=== PATIENT | female | born 1990 | race Caucasian/White ===

== ENCOUNTER 2020-07-17 17:43 | Emergency (ER) | payer MEDICAID ==
[2020-07-17 17:51] VITALS: BP 160/78
--- NOTE | 2020-07-17 18:04 | ED Physician Documentation ---
History of Present Illness - Stated complaint Stated Complaint: SOA - Additonal information Additional information: 30-year-old female presents to the emergency department for evaluation of shortness of breath. She reports a longstanding history of asthma but has been out of her maintenance medication Advair for nearly 2 months since she moved from [place] to [facility]. She was able to have her former provider refill ProAir about 2 weeks ago but she has used it on average of 6-8 times a day and the inhaler is now out. She has a dry cough, no fevers. Denies any new sick contacts, loss of taste or smell. She has scheduled to establish with a primary care provider but that appointment is not until late August. no tobacco use for 5 years. She denies any history of blood clots or cancer. No recent immobilization or unilateral leg swelling. No hemoptysis. She is not on any oral contraceptives. She denies the possibility of as she has a history of a hysterectomy. PD PAST MEDICAL HISTORY - Present Medications Home Medications: Ambulatory Orders Medication Instructions Recorded Confirmed Albuterol 2.5 mg INH Q4H PRN #30 neb 07/17/20 Albuterol Sulfate [Proair Hfa 1 - 2 puffs INH Q4H PRN 07/17/20 07/17/20 Inhaler] Albuterol Sulfate [Proair Hfa 8.5 gm IH TID PRN #1 hfa.aer.ad 07/17/20 Inhaler] Fluticasone/Salmeterol [Advair 1 each IH BID 07/17/20 07/17/20 250-50 Diskus] Fluticasone/Salmeterol [Advair 1 each IH DAILY #1 blst.w.dev 07/17/20 250-50 Diskus] Ipratropium/Albuterol [Duoneb] 3 ml INH Q6H PRN 07/17/20 07/17/20 Nebulizer and Compressor [[place] 1 each MC TID PRN #1 each 07/17/20 Choice Nebulizer] predniSONE [Prednisone] 40 mg PO DAILY #10 tablet 07/17/20 - Allergies Allergies/Adverse Reactions: Allergies Allergy/AdvReac Type Severity Reaction Status Date / Time No Known Drug Allergies Allergy Verified 07/17/20 17:45 PD ED PE EXPANDED - General General: Alert, No acute distress - Neck Neck: Supple w/out meningeal sx. No: Adenopathy - Cardiac Cardiac: Regular Rate, Regular Rhythm, Radial strong equal, Pedal strong equal, Cap refill < 2 sec - Respiratory Respiratory: Clear to ausultation tod, Wheezing, Other (tachypneic; Faint globally scattered wheezes) - Abdomen Abdomen: Normal Bowel sounds. No: Tender to palpation - Extremities Extremities: Normal. No: Pedal edema bilateral - Neuro Neuro: Alert and Oriented X 3, CNII-XII intact, Normal speech - GCS Eye Opening: Spontaneous Motor: Obeys Commands Verbal: Oriented Total: 15 Results - Vitals Vitals: Vital Signs - 24 hr 07/17/20 07/17/20 17:45 18:11 Temperature 36.5 C Heart Rate 79 76 Respiratory 24 16 Rate Blood Pressure 160/78 H O2 Saturation 100 Oxygen O2 Source Room air - Rads (name of study) CXR Radiology: Final report received (No acute cardiopulmonary process) PD MEDICAL DECISION MAKING - ED course Complexity details: reviewed results, re-evaluated patient, considered differential, d/w patient ED course: 30-year-old female presents to the emergency department with 2 weeks of shortness of air. She has a preceding history of known asthma and she has been out of her inhaler for nearly 2 months. On initial presentation she is mildly tachypneic and has very faint global wheezes. She is not hypoxic. Chest x-ray unremarkable for age. no findings to suggest pneumonia. Doubt PE, Pt is PERC negative - Pt was given 60 mg prednisone in the ED and received a duoneb while here. Shortly after receiving the DuoNeb patient felt that her shortness of breath had improved. She feels ready for discharge. She will be given a prescription to resume her Advair as well as a 5-day course of prednisone. I have also prescribed a nebulizer as well as albuterol solution for the nebulizer. She does have a PCP appointment that is scheduled for late August. We discussed emergent return precautions which include any fevers, if she develops a productive cough or has worsening shortness of air despite this treatment. Departure - Departure Disposition: 01 Home, Self Care Clinical Impression: Asthma exacerbation Qualifiers: Asthma severity: moderate Asthma persistence: unspecified Qualified Code(s): J45.901 - Unspecified asthma with (acute) exacerbation Condition: Stable Record reviewed to determine appropriate education?: Yes Prescriptions: Fluticasone/Salmeterol [Advair 250-50 Diskus] 1 each IH DAILY #1 blst.w.dev Albuterol 2.5 mg INH Q4H PRN #30 neb PRN Reason: Wheezing Nebulizer and Compressor [[place] Choice Nebulizer] 1 each MC TID PRN #1 each PRN Reason: Shortness Of Air/Wheezing predniSONE [Prednisone] 40 mg PO DAILY #10 tablet Albuterol Sulfate [Proair Hfa Inhaler] 8.5 gm IH TID PRN #1 hfa.aer.ad PRN Reason: short of air Comments: I think that you were having an exacerbation of your asthma as you have been out of your maintenance medications for quite some time. I have refilled your albuterol as well as your Advair. You should have enough refills to get you through to your primary care appointment. I have also written a prescription for a nebulizer and albuterol to be used 2-3 times a day as needed at home. If at any point you feel that your shortness of breath is worsening, you develop fevers or have a productive cough and please return immediately to the ER.
[2020-07-17] MEDS ORDERED: IPRATROPIUM/ALBUTEROL 3 ML NEB INH PRN (18:05)
[2020-07-17] MEDS ORDERED: predniSONE 20 MG TABLET PO STA (18:05)
--- NOTE | 2020-07-17 18:42 | XRAY Report ---
PROCEDURE: Chest 1 View X-Ray INDICATIONS: short of air TECHNIQUE: One view of the chest was acquired. COMPARISON: None. FINDINGS: Surgical changes and devices: None. Lungs and pleura: No pleural effusions or pneumothorax. Mildly increased bronchovascular markings in bilateral hilar region are seen with mild bronchial wall thickening. No focal infiltrate. Mediastinum: Mediastinal contours appear normal. Heart size is normal. Bones and chest wall: No suspicious bony lesions. Overlying soft tissues appear unremarkable. IMPRESSION: Finding is suggestive of mild reactive airway disease such as bronchitis or asthma. No focal infiltra te. No pleural effusion or pneumothorax. Reviewed by: Aguilar Funez MD on 07/17/2020 5:41 PM BOO Approved by: Aguilar Funez MD on 07/17/2020 5:41 PM AKDT Station ID: [id number]
== END 2020-07-17 18:56 | disposition home or self-care (01) ==
LOC: ED 17:43
DX: J45.901 Unspecified asthma with (acute) exacerbation (principal); Z76.0 Encounter for issue of repeat prescription
CPT/HCPCS: 71045; 94640; 99281; 99283; J7512

== ENCOUNTER 2021-01-01 08:17 | Outpatient (CLI) | payer MEDICAID ==
--- NOTE | 2021-01-02 09:55 | Mammography Report ---
BILATERAL DIGITAL DIAGNOSTIC MAMMOGRAM 3D/2D: 01/01/2021 CLINICAL: Palpable right breast lump. Baseline exam. No prior exams were available for comparison. The tissue of both breasts is heterogeneously dense. T his may lower the sensitivity of mammography. No significant masses, calcifications, or other findings are seen in either breast. IMPRESSION: INCOMPLETE: NEEDS ADDITIONAL IMAGING EVALUATION There is no abnormality seen in the right breast to correspond with the palpable abnormality in the u pper inner quadrant, however, ultrasound is recommended. Ultrasound will be performed immediately following the current exam. This exam was interpreted at Station ID: [id number]. NOTE: For mammograms, a report in lay terms will be sent to the patient. Approximately 15% of breast malignancies will not be visualized mammographically. In the management of a palpable breast mass, a negative mammogram must not discourage biopsy of a clinically suspicious lesion. Electronically Signed By: Carmelo Wilson M.D. ddp/:01/01/2021 08:57:58 ACR BI-RADS Category 0: Incomplete 3340F PARENCHYMAL PATTERN: (D) - The breast(s) demonstrate(s) heterogeneously dense fibroglandular lester hope. BI-RADS CATEGORY: (0) - 0 Ultrasound [id number] Immediate follow-up LATERALITY: (B)
--- NOTE | 2021-01-02 09:55 | Ultrasound Report ---
LIMITED ULTRASOUND OF RIGHT BREAST: 01/01/2021 CLINICAL: Palpable, intermittent right breast lump by patient. Comparison is made to exam dated: 01/01/2021 mammogram - [facility]. Real-time ultrasound of the right breast 1 o'clock region was performed on the area of interest. No discrete cystic or solid mass lesion identified in the area of palpable abnormality. IMPRESSION: NEGATIVE There is no sonographic evidence of malignancy. There is no abnormality seen in the right breast to correspond with the palpable abnormality at 1 o'c lock, however, clinical followup is recommended. Screening mammography recommended at age 40. This exam was interpreted at Station ID: [id number]. Electronically Signed By: Carmelo Wilson M.D. ddp/:01/01/2021 09:16:22 Ultrasound BI-RADS: 1 Negative BI-RADS CATEGORY: (1) - 1 Unspecified - other recall n/a LATERALITY: (B)
== END 2021-01-01 08:18 | disposition home or self-care (01) ==
LOC: DI 08:17
PROVIDERS: ATTEND Nurse Practitioner Family
DX: N63.12 Unspecified lump in the right breast, upper inner quadrant (principal); R63.5 Abnormal weight gain; J45.909 Unspecified asthma, uncomplicated; Z79.899 Other long term (current) drug therapy
CPT/HCPCS: 36415; 80048; 84443

== ENCOUNTER 2021-01-01 09:23 | Outpatient (CLI) | payer MEDICAID ==
[2021-01-01 10:10] LABS: CREATININE 0.6 mg/dL (0.4-1.0)
[2021-01-01 10:20] LABS: THYROID STIMULATING HORMONE 2.18 uIU/mL (0.34-5.60)
== END 2021-01-01 09:24 | disposition home or self-care (01) ==
LOC: LAB 09:23
PROVIDERS: ATTEND Physician Assistant
DX: R63.5 Abnormal weight gain (principal); J45.909 Unspecified asthma, uncomplicated; Z79.899 Other long term (current) drug therapy
CPT/HCPCS: 36415; 80048; 84443

== ENCOUNTER 2021-03-19 12:00 | Outpatient (CLI) | payer MEDICAID ==
[2021-03-19 17:51] LABS: BASOPHILS # (AUTO) 0.1 10^3/uL (0.0-0.1); BASOPHILS % (AUTO) 0.7 %; EOSINOPHILS # (AUTO) 0.3 10^3/uL (0.0-0.7); EOSINOPHILS % (AUTO) 3.8 %; HCT - HEMATOCRIT 42.7 % (37.0-47.0); HGB - HEMOGLOBIN 14.3 g/dL (12.0-16.0); LYMPHOCYTES # (AUTO) 1.9 10^3/uL (1.5-3.5); MEAN CORPUSCULAR HEMOGLOBIN 29.4 pg (27.0-31.0); MEAN CORPUSCULAR HGB CONC 33.5 g/dL (32.0-36.0); MEAN CORPUSCULAR VOLUME 87.9 fL (81.0-99.0); MEAN PLATELET VOLUME 12.1 fL (7.9-10.8); MONOCYTES # (AUTO) 0.6 10^3/uL (0.0-1.0); MONOCYTES % (AUTO) 7.4 %; NEUTROPHILS # (AUTO) 5.6 10^3/uL (1.5-6.6); PLT - PLATELET COUNT 241 10^3/uL (130-450); RED BLOOD COUNT 4.86 10^6/uL (4.20-5.40); RED CELL DISTRIBUTION WIDTH 11.9 % (12.0-15.0); WHITE BLOOD COUNT 8.5 x10^3/uL (4.8-10.8)
[2021-03-21 15:26] LABS: ANA SCREEN NEGATIVE (NEGATIVE)
[2021-03-22 18:26] LABS: 18 KD (IGG) BAND NON-REACTIVE; 23 KD (IGG) BAND NON-REACTIVE; 23 KD (IGM) BLOT NON-REACTIVE; 28 KD (IGG) BAND NON-REACTIVE; 30 KD (IGG) BAND NON-REACTIVE; 39 KD (IGG) BAND REACTIVE; 39 KD (IGM) BLOT NON-REACTIVE; 41 KD (IGG) BAND NON-REACTIVE; 41 KD (IGM) BLOT NON-REACTIVE; 45 KD (IGG) BAND NON-REACTIVE; 58 KD (IGG) BAND NON-REACTIVE; 66 KD (IGG) BAND NON-REACTIVE; 93 KD (IGG) BAND NON-REACTIVE
== END 2021-03-19 12:01 | disposition home or self-care (01) ==
LOC: LAB.N 12:00
PROVIDERS: ATTEND Physician Assistant
DX: G62.9 Polyneuropathy, unspecified (principal); R53.83 Other fatigue; H53.9 Unspecified visual disturbance; Z82.0 Family history of epilepsy and other diseases of the nervous system
CPT/HCPCS: 36415; 82607; 85025; 85651; 86038; 86592; 86617

== ENCOUNTER 2021-07-31 10:41 | Emergency (ER) | payer MEDICAID ==
[2021-07-31 11:13] LABS: BILIRUBIN,URINE NEGATIVE (NEGATIVE); GLUCOSE, URINE (UA) NEGATIVE (NEGATIVE); KETONES,URINE (UA) NEGATIVE (NEGATIVE); LEUKOCYTE ESTERASE, URINE NEGATIVE (NEGATIVE); NITRITE,URINE NEGATIVE (NEGATIVE); OCCULT BLOOD,URINE NEGATIVE (NEGATIVE); PH,URINE 6.5 PH (5.0-7.5); PROTEIN,URINE NEGATIVE (NEGATIVE); UROBILINOGEN,URINE 0.2 (NORMAL) E.U./dL (NORMAL)
[2021-07-31 11:15] LABS: CLARITY,URINE CLEAR (CLEAR)
[2021-07-31 11:20] LABS: BASOPHILS # (AUTO) 0.1 10^3/uL (0.0-0.1); BASOPHILS % (AUTO) 1.5 %; EOSINOPHILS # (AUTO) 0.2 10^3/uL (0.0-0.7); EOSINOPHILS % (AUTO) 2.7 %; HCT - HEMATOCRIT 41.6 % (37.0-47.0); LYMPHOCYTES # (AUTO) 2.1 10^3/uL (1.5-3.5); LYMPHOCYTES % (AUTO) 35.8 %; MEAN CORPUSCULAR HEMOGLOBIN 28.9 pg (27.0-31.0); MEAN CORPUSCULAR HGB CONC 33.7 g/dL (32.0-36.0); MEAN CORPUSCULAR VOLUME 85.8 fL (81.0-99.0); MONOCYTES # (AUTO) 0.5 10^3/uL (0.0-1.0); NEUTROPHILS # (AUTO) 3.1 10^3/uL (1.5-6.6); NEUTROPHILS % (AUTO) 51.8 %; PLT - PLATELET COUNT 243 10^3/uL (130-450); RED BLOOD COUNT 4.85 10^6/uL (4.20-5.40); WHITE BLOOD COUNT 5.9 x10^3/uL (4.8-10.8)
[2021-07-31 11:43] LABS: ALBUMIN 4.1 g/dL (3.2-5.5); ALBUMIN/GLOBULIN RATIO 1.3 (1.0-2.2); BILIRUBIN,TOTAL 0.9 mg/dL (0.2-1.0); CREATININE 0.6 mg/dL (0.4-1.0); TOTAL PROTEIN 7.3 g/dL (6.7-8.2)
[2021-07-31] MEDS ORDERED: KETOROLAC 30 MG/ML VIAL IVP STA (13:55)
--- NOTE | 2021-07-31 14:02 | ED Physician Documentation ---
History of Present Illness - Stated complaint Stated Complaint: LOW BACK PX - Chief complaint Chief Complaint: Abd Pain - History obtained from History obtained from: Patient - History of Present Illness Timing: How many days ago (2) Pain level max: 7 Pain level now: 4 - Additonal information Additional information: 31-year-old female presents to the emergency department stating that she has pain to the right flank. Started 2 days ago. She states it is worse with movement and better with rest. She states that she has had some difficulty urinating as well. Started herself on Augmentin 4 days ago for possible UTI. She states that she has had UTIs and kidney infections in the past. No fevers. No chills. No vomiting. No diarrhea. No constipation. Review of Systems Ten Systems: 10 systems reviewed and negative Constitutional: denies: Fever, Chills GI: denies: Vomiting, Diarrhea : denies: Now EGA Musculoskeletal: denies: Neck pain, Back pain PD PAST MEDICAL HISTORY - Past Medical History Past Medical History: Yes Cardiovascular: None Respiratory: Asthma Neuro: None Endocrine/Autoimmune: None GI: None WAREDRESSER: None : Chronic bladder infection HEENT: None Psych: None Musculoskeletal: None Derm: None - Past Surgical History Past Surgical History: Yes General: Appendectomy /WAREDRESSER: Hysterectomy HEENT: Tonsil/Adenoidectomy, Other - Present Medications Home Medications: Ambulatory Orders Medication Instructions Recorded Confirmed Albuterol Sulfate [Proair Hfa 1 - 2 puffs INH Q4H PRN 07/17/20 07/17/20 Inhaler] Budesonide/Formoterol Fumarate 0 puffs 07/31/21 [Symbicort 80-4.5 Mcg Inhaler] Ondansetron Odt [Zofran] 4 mg TL Q6H PRN #10 tablet 07/31/21 Oxycodone HCl/Acetaminophen 1 - 2 each PO Q6H PRN #14 tablet 07/31/21 [Percocet 5-325 mg Tablet] - Allergies Allergies/Adverse Reactions: Allergies Allergy/AdvReac Type Severity Reaction Status Date / Time No Known Drug Allergies Allergy Verified 07/31/21 10:52 - Social History Does the pt smoke?: No Smoking Status: Never smoker Does the pt drink ETOH?: No Does the pt have substance abuse?: Yes Substance Use and Type: Marijuana - Immunizations Immunizations are current?: Yes PD ED PE NORMAL - Vitals Vital signs reviewed: Yes - General General: Alert and oriented X 3, No acute distress - HEENT HEENT: Moist mucous membranes - Neck Neck: Supple, no meningeal sign - Cardiac Cardiac: RRR - Respiratory Respiratory: No respiratory distress, Clear bilaterally - Abdomen Abdomen: Soft, Non distended, Other (Mild diffuse tenderness to palpation along lower abdomen.) - Back Back: No CVA TTP, No spinal TTP - Derm Derm: Warm and dry, No rash - Extremities Extremities: No edema - Neuro Neuro: Alert and oriented X 3 - Psych Psych: Normal mood, Normal affect Results - Vitals Vitals: Vital Signs - 24 hr 07/31/21 07/31/21 07/31/21 10:47 12:57 13:59 Temperature 36.8 C 36.7 C 36.9 C Heart Rate 121 H 62 60 Respiratory 18 18 18 Rate Blood Pressure 151/89 H 132/85 H 141/71 H O2 Saturation 100 100 100 07/31/21 17:11 Temperature 36.7 C Heart Rate 71 Respiratory 16 Rate Blood Pressure 125/70 O2 Saturation 100 Oxygen O2 Source Room air - Labs Labs: Laboratory Tests 07/31/21 07/31/21 07/31/21 11:00 11:15 11:15 WBC 5.9 RBC 4.85 Hgb 14.0 Hct 41.6 MCV 85.8 MCH 28.9 MCHC 33.7 RDW 12.0 Plt Count 243 MPV 11.0 H Neut # (Auto) 3.1 Lymph # (Auto) 2.1 [place] # (Auto) 0.5 Eos # (Auto) 0.2 Baso # (Auto) 0.1 Absolute Nucleated RBC 0.00 Nucleated RBC % 0.0 Sodium 137 Potassium 4.0 Chloride 106 Carbon Dioxide 23 Anion Gap 8.0 BUN 12 Creatinine 0.6 Estimated GFR (MDRD) 115 Glucose 98 Calcium 9.0 Total Bilirubin 0.9 AST 34 ALT 46 Alkaline Phosphatase 60 Total Protein 7.3 Albumin 4.1 Globulin 3.2 Albumin/Globulin Ratio 1.3 Lipase 27 Urine Color YELLOW Urine Clarity CLEAR Urine pH 6.5 Ur Specific [place] 1.015 Urine Protein NEGATIVE Urine Glucose (UA) NEGATIVE Urine Ketones NEGATIVE Urine Occult Blood NEGATIVE Urine Nitrite NEGATIVE Urine Bilirubin NEGATIVE Urine Urobilinogen 0.2 (NORMAL) Ur Leukocyte Esterase NEGATIVE Ur Microscopic Review NOT INDICATED Urine Culture Comments NOT INDICATED - Rads (name of study) abd/pelvis ct Radiology: Final report received, EMP read contemporaneously, See rad report (1.Large amount of stool burden throughout the colon, which may reflect constipation. 2.Cystic appearing lesion in the right adnexa, likely reflecting an ovarian cyst. Consider pelvic ultrasound as clinically warranted.) pelvic US Radiology: Final report received, EMP read contemporaneously, See rad report (Negative for ovarian torsion. Likely bilateral hemorrhagic cysts. If clinically appropriate, please consider a short-term follow-up ultrasound in 6 weeks to ensure resolution/improvement. Status post hysterectomy.) PD MEDICAL DECISION MAKING - ED course Complexity details: reviewed results, re-evaluated patient, considered differential, d/w patient ED course: Pain well controlled in the emergency department. Appears to have bilateral hemorrhagic ovarian cysts on ultrasound. Likely causing her pain. We will place her on pain medication and have her follow-up with her doctor for further care. Return precautions given. Patient counseled regarding signs and symptoms for which I believe and urgent re-evaluation would be necessary. Patient with good understanding of and agreement to plan and is comfortable going home at this time This document was made in part using voice recognition software. While efforts are made to proofread this document, sound alike and grammatical errors may occur. I am prescribing a short course of short-acting opioid pain medication for this patient. I have reviewed the patients ENVIRONMENTAL HEALTH OFFICER and no concerning findings were noted. I have discussed that the opioids are for short term therapy only, and will not be refilled from the ED. Departure - Departure Disposition: 01 Home, Self Care Clinical Impression: Hemorrhagic ovarian cyst Condition: Good Instructions: ED Cyst Ovarian Follow-Up: Feliciano Zurita MD [Primary Care Provider] - Within 1 week Prescriptions: Oxycodone HCl/Acetaminophen [Percocet 5-325 mg Tablet] 1 - 2 each PO Q6H PRN #14 tablet PRN Reason: pain Ondansetron Odt [Zofran] 4 mg TL Q6H PRN #10 tablet PRN Reason: Nausea / Vomiting Comments: Prescriptions were sent to [facility] in [place]. Please follow-up with your doctor for further care. Return if you worsen. You should have a repeat ultrasound in 4 to 6 weeks to ensure resolution of the cysts. I am prescribing a short course of narcotic pain medication for you. These are potentially dangerous and addictive medications that should be used carefully. These medications may constipate you. Take an nxgr-eeb-oedvnxc stool softener (docusate) twice daily with plenty of water while taking these medications. If you go 24 hours without a bowel movement, take oxny-ftk-gwulybr miralax, per tn pool instructions. Do not drink or drive while taking these medications. If you received narcotic or sedating medications while in the emergency department, do not drive for 24 hours. Store this medication in a safe, secure place and out of reach of children. It is a violation of federal law to give or sell this medication to another person or to use in a manner other than prescribed. The ED will not refill narcotic prescriptions, including prescriptions lost or stolen. To dispose of unwanted medications: 1. [facility] at [address] in [place] has a medication drop box. They accept prescription medications (in pill form) Thursday through Thursday 9:00 a.m. to 5:00 p.m. 2. The [facility] accepts prescription medications (in pill form only) for disposal year round. Call for more information. 3. Contact the [facility] for the next [facility] sponsored prescription drug collection event. , [phone], or [phone]; Discharge Date/Time: 07/31/21 17:14
[2021-07-31] MEDS ORDERED: IOVERSOL 320 100 ML VIAL IVP ONE ×2 (14:09→21:49)
--- NOTE | 2021-07-31 14:43 | CT Report ---
PROCEDURE: Abdomen/Pelvis W INDICATIONS: RLQ/ R flank pain CONTRAST: IV CONTRAST: Optiray 320 ml: 100 PO CONTRAST: *NO PO CONTRAST TECHNIQUE: After the administration of intravenous contrast, 5 mm thick sections acquired from the diaphragms to the symphysis. 5 mm thick coronal and sagittal reformats were acquired. For radiation dose reducti on, the following was used: automated exposure control, adjustment of mA and/or kV according to megan ent size. COMPARISON: None. FINDINGS: Inferior chest: No focal consolidation, pleural effusion, or pneumothorax. No cardiomegaly or perica rdial effusion. Gallbladder: The gallbladder is distended with a smooth thin wall. Biliary tree: No intra-or extrahepatic biliary ductal dilatation. Liver: The liver demonstrates normal enhancement, size, and contour. Spleen: Normal enhancement, size and morphology is seen. Pancreas: No contour deforming mass or inflammatory change. Adrenals: Normal size without masses. Kidneys/ureters: Normal size and morphology. No solid masses or hydronephrosis. Vasculature: No evidence of aneurysm or other significant vascular pathology. Lymphatic system: No pathologic enlargement by size criteria. GI/mesentery: No evidence of intestinal obstruction. Large amount of stool burden throughout the colo n. The appendix is not clearly identified. Peritoneum/Retroperitoneum: No free intraperitoneal gas or large collection. Urinary bladder: Not well distended. Pelvic organs: 3.6 x 2.2 cm hypoattenuating lesion in the right adnexa. Bones/soft tissues: No significant abnormality. IMPRESSION: 1.Large amount of stool burden throughout the colon, which may reflect constipation. 2.Cystic appearing lesion in the right adnexa, likely reflecting an ovarian cyst. Consider pelvic ult rasound as clinically warranted. Reviewed by: Jorge Frankel MD on 07/31/2021 2:42 PM PDT Approved by: Jorge Frankel MD on 07/31/2021 2:42 PM PDT Station ID: [id number]
[2021-07-31 17:13] VITALS: BP 125/70
--- NOTE | 2021-07-31 17:13 | Ultrasound Report ---
PROCEDURE: Pelvic w/Transvag+Doppler Comp INDICATIONS: pelvic pain, R, h/o hysterectomy, R ovary cyst CT? TECHNIQUE: Real-time scanning was performed of the pelvic organs, with image documentation. Additional endovagi nal scanning was necessary due to incomplete visualization of the adnexal and endometrial structures by transabdominal scanning. COMPARISON: Correlation is made with prior abdomen pelvis CT, 07/31/2021. FINDINGS: No pathologic free abdominal or pelvic fluid. Uterus: Prior hysterectomy. Ovaries: The right ovary measures 4.8 x 2.6 x 3.8 cm, with a calculated volume of 25.2 cc. Likely he morrhagic cysts are seen involving the right ovary that measure up to 1.8 cm up to 1.4 cm, respective ly. The left ovary measures 3.9 x 1.6 x 2.8 cm, with a calculated volume of 9 cc. Within the left ovary, there is a likely 2.2 cm hemorrhagic cyst. Normal-appearing arterial waveforms are confirmed to each ovary. No adnexal masses are seen on either side. IMPRESSION: Negative for ovarian torsion. Likely bilateral hemorrhagic cysts. If clinically appropriate, please consider a short-term follow-u p ultrasound in 6 weeks to ensure resolution/improvement. Status post hysterectomy. Note: Concordant preliminary findings given by the paralegal internship upon the completion of the examination to Dr. Arrington. Reviewed by: Taras Farmer MD on 07/31/2021 4:11 PM BOO Approved by: Taras Farmer MD on 07/31/2021 4:11 PM BOO Station ID: [id number]
== END 2021-07-31 17:14 | disposition home or self-care (01) ==
LOC: ED 10:41
DX: N83.202 Unspecified ovarian cyst, left side (principal); N83.201 Unspecified ovarian cyst, right side
CPT/HCPCS: 36415; 74177; 76830; 76856; 80053; 81003; 83690; 85025; 93975; 96374; 99283; 99284; Q9967; 81001; 87086

== ENCOUNTER 2021-11-05 08:00 | Outpatient (CLI) | payer MEDICAID ==
[2021-11-06 20:33] LABS: BACTERIAL VAGINOSIS DNA NEGATIVE (NEGATIVE); CANDIDA GLABRATA DNA NEGATIVE (NEGATIVE); CANDIDA GROUP DNA NEGATIVE (NEGATIVE); CANDIDA KRUSEI DNA NEGATIVE (NEGATIVE); TRICHOMONAS VAGINALIS DNA NEGATIVE (NEGATIVE)
== END 2021-11-05 23:59 | disposition home or self-care (01) ==
LOC: LAB.WC 08:00
PROVIDERS: ATTEND Obstetrics & Gynecology
DX: R10.2 Pelvic and perineal pain (principal)
CPT/HCPCS: 87661; 87801

== ENCOUNTER 2021-11-14 07:59 | Outpatient (CLI) | payer MEDICAID ==
--- NOTE | 2021-11-14 11:30 | Ultrasound Report ---
PROCEDURE: Pelvic w/Transvaginal INDICATIONS: OVARIAN CYST TECHNIQUE: Real-time scanning was performed of the pelvic organs, with image documentation. Additional endovagi nal scanning was necessary due to incomplete visualization of the adnexal and endometrial structures by transabdominal scanning. COMPARISON: July 31, 2021. FINDINGS: UTERUS: Surgically absent. RIGHT OVARY: 4 x 2.4 x 3.2 cm. Color-flow projects over the ovarian tissue. A 2.5 x 1.8 x 2.5 cm hypo echoic lesion is seen within the right ovary, most consistent with a cyst. LEFT OVARY: 2.3 x 2 x 1.7 cm. Color-flow projects over the ovarian tissue. OTHER: None. IMPRESSION: 1.Simple appearing, right ovarian cyst as detailed above. Reviewed by: Jorge Frankel MD on 11/14/2021 11:28 AM PST Approved by: Jorge Frankel MD on 11/14/2021 11:28 AM PST Station ID: [id number]
== END 2021-11-14 08:00 | disposition home or self-care (01) ==
LOC: DI 07:59
PROVIDERS: ATTEND Obstetrics & Gynecology
DX: N83.291 Other ovarian cyst, right side (principal)

== ENCOUNTER 2023-02-24 08:53 | Outpatient (CLI) | payer MEDICAID ==
--- NOTE | 2023-02-24 17:01 | Ultrasound Report ---
PROCEDURE: Abdomen Limited INDICATIONS: RUQ ABD PAIN TECHNIQUE: Real-time focused scanning was performed of the abdomen, with image documentation. COMPARISONS: CT abdomen and pelvis with, 07/31/2021. FINDINGS: Liver: Liver is normal in size and homogeneous in echotexture. Gallbladder: Unremarkable. No gallstones, gallbladder or thickening, pericholecystic fluid collection or sonographic English sign. Biliary ducts: Intrahepatic bile ducts are non-dilated. Extrahepatic bile duct caliber measures 4.4 mm. Normal is 6-7 mm or less in diameter, or 10 mm or less post-cholecystectomy. Pancreas: Visualized portions of the pancreas are sonographically normal. Right kidney: Normal in size and echotexture. Right kidney measures 9.1 cm long. No hydronephrosis o r nephrolithiasis. No solid masses. No complex renal cystic lesions which require follow-up. Aorta: Visualized aorta is normal in caliber at less than 3 cm. IVC: Intrahepatic inferior vena cava is patent. Miscellaneous: No free abdominal fluid. IMPRESSION: 1. Limited abdominal ultrasound exam. A cause for right upper quadrant pain is not identified. Reviewed by: Noé Cowart MD on 02/24/2023 5:00 PM PDT Approved by: Noé Cowart MD on 02/24/2023 5:00 PM PDT Station ID: [id number]
== END 2023-02-24 08:54 | disposition home or self-care (01) ==
LOC: DI 08:53
PROVIDERS: ATTEND Nurse Practitioner Family
DX: R10.11 Right upper quadrant pain (principal)

== ENCOUNTER 2023-05-04 08:09 | Outpatient (CLI) | payer MEDICAID ==
[2023-05-04 12:43] LABS: BASOPHILS # (AUTO) 0.1 10^3/uL (0.0-0.1); BASOPHILS % (AUTO) 1.4 %; EOSINOPHILS # (AUTO) 0.3 10^3/uL (0.0-0.7); EOSINOPHILS % (AUTO) 5.6 %; HCT - HEMATOCRIT 41.1 % (37.0-47.0); HGB - HEMOGLOBIN 13.8 g/dL (12.0-16.0); LYMPHOCYTES # (AUTO) 1.9 10^3/uL (1.5-3.5); LYMPHOCYTES % (AUTO) 32.8 %; MEAN CORPUSCULAR HEMOGLOBIN 28.6 pg (27.0-31.0); MEAN CORPUSCULAR HGB CONC 33.6 g/dL (32.0-36.0); MEAN CORPUSCULAR VOLUME 85.3 fL (81.0-99.0); MEAN PLATELET VOLUME 12.1 fL (7.9-10.8); MONOCYTES # (AUTO) 0.5 10^3/uL (0.0-1.0); MONOCYTES % (AUTO) 8.3 %; NEUTROPHILS # (AUTO) 3.1 10^3/uL (1.5-6.6); NEUTROPHILS % (AUTO) 51.7 %; PLT - PLATELET COUNT 241 10^3/uL (130-450); RED BLOOD COUNT 4.82 10^6/uL (4.20-5.40); RED CELL DISTRIBUTION WIDTH 11.9 % (12.0-15.0); WHITE BLOOD COUNT 5.9 x10^3/uL (4.8-10.8)
[2023-05-04 13:04] LABS: ALBUMIN 4.1 g/dL (3.2-5.5); ALBUMIN/GLOBULIN RATIO 1.7 (1.0-2.2); ALKALINE PHOSPHATASE 40 IU/L (42-121); ALT ALANINE AMINOTRANSFERASE 23 IU/L (10-60); AST ASPARTATE AMINOTRANSFERASE 16 IU/L (10-42); BILIRUBIN,TOTAL 0.5 mg/dL (0.2-1.0); BUN - BLOOD UREA NITROGEN 12 mg/dL (6-20); CARBON DIOXIDE - CO2 26 mmol/L (21-32); CHLORIDE 108 mmol/L (101-111); CHOL/HDL RATIO 2.5 (<4.4); CHOLESTEROL 174 mg/dL; CREATININE 0.7 mg/dL (0.6-1.3); GFR - MDRD 96 (>89); GLUCOSE 106 mg/dL (74-104); HDL CHOLESTEROL 69 mg/dL; LDL CHOLESTEROL,CALCULATED 92 mg/dL; LDL/HDL RATIO 1.3 (<4.4); SODIUM 136 mmol/L (135-145); TOTAL PROTEIN 6.5 g/dL (6.4-8.9); TRIGLYCERIDES 64 mg/dL (48-352); VLDL CHOLESTEROL 13 mg/dL
[2023-05-04 13:17] LABS: THYROID STIMULATING HORMONE 3.62 uIU/mL (0.34-5.60)
[2023-05-04 22:33] LABS: CHLAMYDIA TRACHOMATIS DNA NEGATIVE (NEGATIVE); NEISSERIA GONORRHOEAE DNA NEGATIVE (NEGATIVE); TRICHOMONAS VAGINALIS DNA NEGATIVE (NEGATIVE)
[2023-05-05 04:09] LABS: HCV AB Non Reactive (Non Reactive); HIV SCREEN 4TH GENERATION Non Reactive (Non Reactive)
[2023-05-05 06:11] LABS: RPR Non Reactive (Non Reactive)
== END 2023-05-04 08:10 | disposition home or self-care (01) ==
LOC: LAB.N 08:09
PROVIDERS: ATTEND Nurse Practitioner Family
DX: Z00.00 Encounter for general adult medical examination without abnormal findings (principal); E53.8 Deficiency of other specified B group vitamins; Z11.3 Encounter for screening for infections with a predominantly sexual mode of transmission
CPT/HCPCS: 36415; 80053; 80061; 82607; 83721; 84443; 85025; 86592; 86803; 87389; 87491; 87591; 87661